=== PATIENT | female | born 1950 | race Caucasian/White ===

== ENCOUNTER 2018-09-14 14:01 | Emergency (ER) | payer BC, MEDICARE ==
--- NOTE | 2018-09-14 15:13 | EDM.PDOC ---
ED HPI GENERAL MEDICAL PROBLEM - General Chief Complaint: Cardiovascular Problem Stated Complaint: HIGH BP Time Seen by Provider: 09/14/18 14:50 Source of Information: Reports: Patient, Old Records, RN History Limitations: Reports: No Limitations - History of Present Illness INITIAL COMMENTS - FREE TEXT/NARRATIVE: 68 yo female with no recent hx of HTN last checked her BP before today 2 weeks ago. Her BP typically runs in the low 130's. Today she checked it at [facility] as she does every 2 weeks and it was much higher. She denies CP, CÁRDENAS, dizziness, diaphoresis, decreased urination or leg swelling. Thinks she has been under more stress lately and has been eating more salt lately. Came in to discuss the elevated BP. Onset: Unknown/Unsure Duration: Day(s): (Not sure when it kaley, sometime over the past 2 weeks?) Location: Reports: Generalized Quality: Reports: Other (no pain) Severity: Moderate Improves with: Reports: None Worsens with: Reports: None Context: Reports: Other (See HPI) Associated Symptoms: Reports: No Other Symptoms Treatments BR[employer]ER [employer]CE: Reports: Other (see below) (none) - Related Data Allergies Allergy/AdvReac Type Severity Reaction Status Date / Time cefuroxime Allergy Cannot Verified 09/14/18 15:08 Remember levofloxacin [From Levaquin] Allergy Hives Verified 09/14/18 15:08 nitrofurantoin Allergy Mouth Sores Verified 09/14/18 15:08 [From Macrobid] Sulfa (Sulfonamide Allergy Hives Verified 09/14/18 15:08 Antibiotics) Home Meds: Home Meds NK [No Known Home Meds] 09/14/18 [History] Past Medical History Respiratory History: Reports: Bronchitis, Recurrent - Past Surgical History HEENT Surgical History: Reports: Tonsillectomy Social & Family History - Tobacco Use Smoking Status *Q: Never Smoker ED ROS GENERAL - Review of Systems Review Of Systems: See Below Constitutional: Reports: No Symptoms HEENT: Reports: No Symptoms Respiratory: Reports: No Symptoms Cardiovascular: Reports: No Symptoms GI/Abdominal: Reports: No Symptoms : Reports: No Symptoms Skin: Reports: No Symptoms Neurological: Reports: No Symptoms ED EXAM, GENERAL - Physical Exam Exam: See Below Exam Limited By: No Limitations General Appearance: Alert, WD/WN, No Apparent Distress Eye Exam: Bilateral Eye: Normal Inspection, PERRL Ears: Normal External Exam, Normal Canal, Hearing Grossly Normal Ear Exam: Bilateral Ear: Auricle Normal, Canal Normal Nose: Normal Inspection, No Blood Throat/Mouth: Normal Inspection, Normal Lips, Normal Oropharynx, Normal Voice, No Airway Compromise Head: Atraumatic, Normocephalic Neck: Normal Inspection Respiratory/Chest: No Respiratory Distress, Lungs Clear, Normal Breath Sounds, No Accessory Muscle Use Cardiovascular: Regular Rate, Rhythm, No Edema GI/Abdominal: Normal Bowel Sounds, Soft, Non-Tender, No Distention Back Exam: Normal Inspection Extremities: Normal Inspection, Normal Range of Motion, Non-Tender, No Pedal Edema Neurological: Alert, Oriented, CN II-XII Intact, Normal Cognition, No Motor/ Sensory Deficits Psychiatric: Normal Affect, Normal Mood Skin Exam: Warm, Dry, Intact, Normal Color, No Rash Course - Vital Signs Last Recorded V/S: Last Vital Signs Temp 36.6 C 09/14/18 14:35 Pulse 79 09/14/18 14:35 Resp 14 09/14/18 14:35 BP 185/86 H 09/14/18 14:35 Pulse Ox 98 09/14/18 14:35 Departure - Departure Time of Disposition: 15:13 Disposition: Home, Self-Care 01 Condition: Good Clinical Impression: HTN, goal below 130/80 Instructions: Preventing Hypertension Referrals: Breonna Schwartz PA [Primary Care Provider] - Additional Instructions: Avoid salt or salty foods. Limit caffeine, alcohol, or decongestants. Eat a diet with plenty of fresh fruits and vegetables. Recheck with your doctor later this week. Return if you develop symptoms like CÁRDENAS, chest pain, SOB, or stroke.
== END 2018-09-14 15:33 | disposition home or self-care (01) ==
LOC: JP.ED 14:01
DX: I10 Essential (primary) hypertension (principal); Z88.2 Allergy status to sulfonamides; Z88.8 Allergy status to other drugs, medicaments and biological substances; Z88.1 Allergy status to other antibiotic agents
CPT/HCPCS: 99282

== ENCOUNTER 2019-04-09 05:45 | Day surgery (SDC) | payer BC, MEDICARE ==
[2019-04-09] MEDS ORDERED: Sodium Chloride 0.9% 10 ML Syringe FLUSH PRN (07:00)
--- NOTE | 2019-04-09 12:10 | OR ---
DATE OF PROCEDURE: 04/09/2019 SURGEON: Namrata Varela MD POSTOPERATIVE CARE: Postoperative care will be provided mainly at the [address] [place] [address] [facility] in conjunction with [facility]. PREOPERATIVE DIAGNOSIS: Cataract, right eye. POSTOPERATIVE DIAGNOSIS: Cataract, right eye. PROCEDURE: Phacoemulsification with intraocular lens placement, right eye. ANESTHESIA: Topical and intracameral. ESTIMATED BLOOD LOSS: Minimal. COMPLICATIONS: None. PATHOLOGY SPECIMENS: None. SURGICAL FINDINGS: None. INDICATION FOR PROCEDURE: The patient is a 68-year-old female with history of a visually significant cataract in the right eye, which interfered with activities of daily living. This consisted of a nuclear sclerosis cataract. Following careful discussion of the risks, benefits and alternatives to cataract extraction with intraocular lens placement including blindness and , the patient elected to proceed, and informed, written consent was obtained prior to the procedure. DESCRIPTION OF THE PROCEDURE: The patient was previously identified, and a vikki placed above the right eye. All sources, including the patient, indicated that the right eye was the correct eye. The patient was subsequently taken to the operating room where standard monitors were applied. The patient was then prepped and draped in the usual sterile fashion for ophthalmic surgery. Attention was first directed at the 12 o'clock position where a paracentesis port was fashioned. Shugar solution followed by Viscoat was instilled into the eye. Attention was then directed to the 8:30 position where a triplanar incision was made in a near-clear manner using a keratome. A continuous capsulorrhexis was then made using a combination of the cystotome and Utrata forceps. Hydrodissection was achieved using a balanced salt solution, and the lens rotated nicely. Phacoemulsification was then done using a modified [id number] technique without complication. Phaco time was 5.58 CDE. The remaining cortex was removed using the irrigation/aspiration handpiece. Provisc was then instilled into the eye. A Technis lens, model [id number], at 21.5 diopters was then placed in the capsular bag using an [place] injector. The remaining viscoelastic was removed using the irrigation/aspiration forceps. All wounds were then checked and found to be watertight. The lid speculum and drapes were removed. Maxitrol ointment was placed in the patient's right eye, and the eye was shielded. The patient tolerated the procedure well. The patient was instructed to follow up tomorrow. All needle and sponge counts were correct at the end of the procedure. Namrata Varela MD /[id number]
== END 2019-04-09 08:02 | disposition home or self-care (01) ==
LOC: JP.SDS 05:45
PROVIDERS: ATTEND Ophthalmology
DX: H25.11 Age-related nuclear cataract, right eye (principal); I10 Essential (primary) hypertension; K21.9 Gastro-esophageal reflux disease without esophagitis; H91.90 Unspecified hearing loss, unspecified ear
CPT/HCPCS: 66984; V2632

== ENCOUNTER 2019-05-07 06:14 | Day surgery (SDC) | payer BC, MEDICARE ==
[2019-05-07] MEDS ORDERED: Sodium Chloride 0.9% 10 ML Syringe FLUSH PRN (07:00)
--- NOTE | 2019-05-07 12:19 | OR ---
DATE OF PROCEDURE: 05/07/2019 SURGEON: Namrata Varela MD POSTOPERATIVE CARE: Postoperative care will be provided mainly at the [address] [place] [address] [facility] in conjunction with [facility]. PREOPERATIVE DIAGNOSIS: Cataract, left eye. POSTOPERATIVE DIAGNOSIS: Cataract, left eye. PROCEDURE: Phacoemulsification with intraocular lens placement, left eye. ANESTHESIA: Topical and intracameral. ESTIMATED BLOOD LOSS: Minimal. COMPLICATIONS: None. PATHOLOGY SPECIMENS: None. SURGICAL FINDINGS: None. INDICATION FOR PROCEDURE: The patient is a 68-year-old female with history of a visually significant cataract in the left eye, which interfered with activities of daily living. This consisted of a nuclear sclerosis cataract. Following careful discussion of the risks, benefits and alternatives to cataract extraction with intraocular lens placement including blindness and , the patient elected to proceed, and informed, written consent was obtained prior to the procedure. DESCRIPTION OF THE PROCEDURE: The patient was previously identified, and a vikki placed above the left eye. All sources, including the patient, indicated that the left eye was the correct eye. The patient was subsequently taken to the operating room where standard monitors were applied. The patient was then prepped and draped in the usual sterile fashion for ophthalmic surgery. Attention was first directed at the 12 o'clock position where a paracentesis port was fashioned. Shugar solution followed by Viscoat was instilled into the eye. Attention was then directed to the 8:30 position where a triplanar incision was made in a near-clear manner using a keratome. A continuous capsulorrhexis was then made using a combination of the cystotome and Utrata forceps. Hydrodissection was achieved using a balanced salt solution, and the lens rotated nicely. Phacoemulsification was then done using a modified totnuy-[id number]-fokxkfv technique without complication. Phaco time was 6.63 CDE. The remaining cortex was removed using the irrigation/aspiration handpiece. Provisc was then instilled into the eye. A Technis lens, model [id number], at 21.0 diopters was then placed in the capsular bag using an [place] injector. The remaining viscoelastic was removed using the irrigation/aspiration forceps. All wounds were then checked and found to be watertight. The lid speculum and drapes were removed. Maxitrol ointment was placed in the patient's left eye, and the eye was shielded. The patient tolerated the procedure well. The patient was instructed to follow up tomorrow. All needle and sponge counts were correct at the end of the procedure. Namrata Varela MD /[id number]
== END 2019-05-07 08:52 | disposition home or self-care (01) ==
LOC: JP.SDS 06:14
PROVIDERS: ATTEND Ophthalmology
DX: H25.12 Age-related nuclear cataract, left eye (principal); I10 Essential (primary) hypertension; K21.9 Gastro-esophageal reflux disease without esophagitis; Z88.2 Allergy status to sulfonamides; Z88.1 Allergy status to other antibiotic agents
CPT/HCPCS: 66984; V2632

== ENCOUNTER 2021-01-21 19:24 | Emergency (ER) | payer BC, MEDICARE ==
[2021-01-21] MEDS ORDERED: fentaNYL 100 MCG/2 ML SDV IVPUSH ONE (21:22)
[2021-01-21] MEDS ORDERED: Propofol 200 MG/20 ML SDV ONE (21:39)
--- NOTE | 2021-01-21 23:03 | EDM.PDOC ---
ED HPI GENERAL MEDICAL PROBLEM - General Chief Complaint: Upper Extremity Injury/Pain Stated Complaint: LT WRIST/ARM INJURY Time Seen by Provider: 01/21/21 20:13 Source of Information: Reports: Patient History Limitations: Reports: No Limitations - History of Present Illness INITIAL COMMENTS - FREE TEXT/NARRATIVE: Keerthi is a 70-year-old female presenting to the ED for an injury to her left wrist and forearm. The patient was watering her lawn with a sprinkler head when she set the item down it sprayed water on her causing her to slip on the grass and fall landing on her left arm. Her hand folded under causing pain and deformity of the wrist. There was volar angulation of the distal segment. There was significant bruising. She denies any numbness or tingling at this t yessica. There is notable Colles' deformity. Treatments FOIL WRAPPER: Reports: Cold Therapy - Related Data Allergies Allergy/AdvReac Type Severity Reaction Status Date / Time cefuroxime Allergy Cannot Verified 01/21/21 20:31 Remember latex Allergy Itching Verified 01/21/21 20:31 levofloxacin [From Levaquin] Allergy Hives Verified 01/21/21 20:31 nitrofurantoin Allergy Mouth Sores Verified 01/21/21 20:31 [From Macrobid] Sulfa (Sulfonamide Allergy Hives Verified 01/21/21 20:31 Antibiotics) Home Meds: Home Meds Fluconazole [Diflucan] 150 mg PO DAILY PRN 04/06/19 [History] Fluticasone Propionate [Flonase] 2 spray NASBOTH DAILY PRN 04/06/19 [History] #103/Iron Fumarate/Fa [ ] 1 tab PO DAILY 04/06/19 [History] diphenhydrAMINE HCL [Benadryl Allergy] 25 mg PO ASDIRECTED PRN 04/06/19 [History] Ascorbic Acid [Vitamin C] 1,000 mg PO BID 04/09/19 [History] Ergocalciferol (Vitamin D2) [Vitamin D2] 500 units PO DAILY 04/09/19 [History] Triamterene/Hydrochlorothiazid [Triamterene-HCTZ 37.5-25 MG] 1 tab PO DAILY 01/21/21 [History] Past Medical History HEENT History: Reports: Allergic Rhinitis, Cataract, Hard of Hearing, Sinusitis Cardiovascular History: Reports: Hypertension Respiratory History: Reports: Bronchitis, Recurrent Gastrointestinal History: Reports: GERD, Hepatitis Genitourinary History: Reports: Renal Calculus, UTI, Recurrent ELECTRONICS SUPERVISOR History: Reports: , Other (See Below) Other ELECTRONICS SUPERVISOR History: ovarian cyst Musculoskeletal History: Reports: Fracture, Other (See Below) Other Musculoskeletal History: right lower leg fracture - Infectious Disease History Infectious Disease History: Reports: Chicken Pox, Measles, Mumps Other Infectious Disease History: states hepatitis as child - Past Surgical History HEENT Surgical History: Reports: Cataract Surgery, Tonsillectomy Cardiovascular Surgical History: Reports: None Respiratory Surgical History: Reports: None GI Surgical History: Reports: EGD Female Surgical History: Reports: None, Tubal Ligation Musculoskeletal Surgical History: Reports: None Social & Family History - Tobacco Use Tobacco Use Status *Q: Never Tobacco User - Caffeine Use Caffeine Use: Reports: Coffee Review of Systems - Review of Systems Review Of Systems: See Below Constitutional: Reports: No Symptoms Respiratory: Reports: No Symptoms Cardiovascular: Reports: No Symptoms GI/Abdominal: Reports: No Symptoms Musculoskeletal: Reports: Other (Left wrist pain, swelling, and deformity) Neurological: Reports: No Symptoms ED EXAM, GENERAL - Physical Exam Exam: See Below Exam Limited By: No Limitations General Appearance: Alert, Mild Distress Respiratory/Chest: No Respiratory Distress, Lungs Clear, Normal Breath Sounds Cardiovascular: Normal Peripheral Pulses, Regular Rate, Rhythm Peripheral Pulses: 2+: Radial (L) Extremities: Normal Capillary Refill, Limited Range of Motion (Volar deformity with angulation of the distal segment of the forearm and wrist. There is significant ecchymosis, swelling, and tenderness. Movement in the hand is intact.) Neurological: Alert, Oriented, Normal Cognition, No Motor/Sensory Deficits Skin Exam: Ecchymosis (Ecchymosis over the distal left forearm and wrist) ED TRAUMA EXTREMITY PROCEDURES - Joint Reduction Left Wrist Sedation: Conscious Sedation Pre-Procedure NV Status: Normal Post-Procedure NV Status: Normal Technique: Traction/Counter Traction Number of Attempts: 1 Post-Reduction Imaging: Acceptably Reduced (Reduction was performed under fluoroscopic examination with acceptable alignment of the bones.) Joint Reduction Complications: Yes Joint Reduction Complication Description: Unfortunately while placing the patient in the sugar tong splint, she started to have flexor muscle contractions which likely pulled the bones out of the previous alignment. This is visualized in the post reduction x-rays once the sugar tong splint was applied. Course - Vital Signs Last Recorded V/S: Last Vital Signs Temp 36.5 C 01/21/21 20:36 Pulse 111 H 01/21/21 20:36 Resp 16 01/21/21 20:36 BP 168/89 H 01/21/21 20:36 Pulse Ox 99 01/21/21 20:36 - Orders/Labs/Meds Orders: Active Orders 24 hr Category Date Time Status Consult to Orthopedic Clinic [CONS] Routine Cons 01/21/21 23:00 Active Fluoro Up To 1Hr [CR] Stat Exams 01/21/21 21:37 Taken Wrist 2V Lt [CR] Stat Exams 01/21/21 22:09 Taken Wrist Comp Min 3V Lt [CR] Stat Exams 01/21/21 20:12 Taken Meds: Medications Discontinued Medications Generic Name Dose Route Start Last Admin Trade Name Joseq PRN Reason Stop Dose Admin Fentanyl 100 mcg 01/21/21 21:22 01/21/21 22:15 Fentanyl 100 Mcg/2 Ml Sdv IVPUSH 01/21/21 21:23 100 mcg ONETIME ONE Administration Propofol Confirm 01/21/21 21:39 Propofol 200 Mg/20 Ml Sdv Administered 01/21/21 21:40 Dose 200 mg .ROUTE .STK-MED ONE - Radiology Interpretation Free Text/Narrative:: I reviewed the three-view x-ray of the left wrist showing volar angulation of a Colles' fracture with displacement of the distal radius and ulna as well as lateral displacement of the proximal sections. Risks and benefits were discussed about attempting a closed reduction under conscious sedation. The patient was consented to proceed with the reduction. I did express that there was a chance that it would require surgery but there was also a better chance that we could reduce this and avoid that. Patient understands this and elects to proceed. Dillon Alvarado anesthesia assisted with the conscious sedation portion of the procedure. - Re-Assessments/Exams Free Text/Narrative Re-Assessment/Exam: 01/21/21 I reviewed the three-view x-ray of the left wrist showing volar angulation of a Colles' fracture with displacement of the distal radius and ulna as well as lateral displacement of the proximal sections. Risks and benefits were discussed about attempting a closed reduction under conscious sedation. The patient was consented to proceed with the reduction. I did express that there was a chance that it would require surgery but there was also a better chance that we could reduce this and avoid that. Patient understands this and elects to proceed. Dillon Alvarado anesthesia assisted with the conscious sedation portion of the procedure. Fluoroscopy was used to show alignment of the reduction prior to splinting. After manipulation with traction and countertraction, the alignment was markedly improved, however, during application of the sugar tong splint and with the patient waking up from anesthesia, she started having twinges in her flexor muscles which likely pulled the distal segments back out of alignment somewhat. This was discovered in the post reduction films once the splint was applied. She may have some improve ment with relaxation of the muscles and with time. I had like the patient to follow-up with Dr. Najera next week for reevaluation and possible casting or surgery if it is necessary. Indications for the patient to return to the ED were discussed. She requested Tylenol 3 for pain control which has been sent off to the [facility] meds machine. All questions were answered prior to discharge Departure - Departure Time of Disposition: 23:01 Disposition: Home, Self-Care 01 Clinical Impression: Fracture, Colles, left, closed Qualifiers: Encounter type: initial encounter Qualified Code(s): S52.532A - Colles' fracture of left radius, initial encounter for closed fracture - Discharge Information Instructions: Wrist Fracture Treated With Immobilization, [id number] Referrals: Breonna Schwartz PA [Primary Care Provider] - Forms: ED Department Discharge Care Plan Goals: I have sent a prescription out to the [facility] machine for Tylenol 3 per your request. Please use as needed. I have placed a consult with Dr. Najera in orthopedics for early next week for reevaluation and probable casting. They will likely contact you on Saturday to set up that appointment. Return to the ED should you develop any significant numbness or tingling, blueness of the fingers, or increasing pain. No use of the left arm. Keep the left arm elevated. You may apply ice to the area of pain through the splint. Wear the sling when up and ambulating. Sepsis Event Note (ED) - Evaluation Sepsis Screening Result: No Definite Risk - Focused Exam Vital Signs: Vital Signs Temp Pulse Resp BP Pulse Ox 01/21/21 20:36 36.5 C 111 H 16 168/89 H 99 01/21/21 20:26 36.5 C 111 H 16 168/89 H 99 - Problem List & Annotations (1) Fracture, Colles, left, closed SNOMED Code(s): 783793347 Code(s): S52.532A - COLLES' FRACTURE OF LEFT RADIUS, INIT FOR CLOS FX Status: Acute Priority: Medium Current Visit: Yes Qualifiers: Encounter type: initial encounter Qualified Code(s): S52.532A - Colles' fracture of left radius, initial encounter for closed fracture - Problem List Review Problem List Initiated/Reviewed/Updated: Yes - My Orders Last 24 Hours: My Active Orders 01/21/21 20:12 Wrist Comp Min 3V Lt [CR] Stat 01/21/21 21:37 Fluoro Up To 1Hr [CR] Stat 01/21/21 22:09 Wrist 2V Lt [CR] Stat 01/21/21 23:00 Consult to Orthopedic Clinic [CONS] Routine - Assessment/Plan Last 24 Hours: My Active Orders 01/21/21 20:12 Wrist Comp Min 3V Lt [CR] Stat 01/21/21 21:37 Fluoro Up To 1Hr [CR] Stat 01/21/21 22:09 Wrist 2V Lt [CR] Stat 01/21/21 23:00 Consult to Orthopedic Clinic [CONS] Routine
--- NOTE | 2021-01-23 10:18 | CR ---
Wrist Comp Min 3V Lt CLINICAL HISTORY: Fall, deformity FINDINGS: Patient is a comminuted displaced fracture of the distal radius with articular surface involvement. There is a fracture of the distal ulna at the diaphyseal metaphyseal junction. There is also a fracture of the ulnar styloid. Impression: Displaced comminuted fractures of the distal radius and ulna
--- NOTE | 2021-01-23 10:19 | CR ---
Fluoro Up To 1Hr CLINICAL HISTORY: Fracture reduction FINDINGS: Fluoroscopic spot images show reduction in the displaced distal radial ulnar fractures Fluoroscopy time was 3 seconds IMPRESSION: OR images as above
--- NOTE | 2021-01-23 10:37 | CR ---
Wrist 2V Lt CLINICAL HISTORY: Postreduction FINDINGS: Patient has distal radial ulnar fractures. Displacement has been reduced since prior study. There is a splint in place IMPRESSION: Post reduction distal radial and ulnar fractures in splint
== END 2021-01-21 23:14 | disposition home or self-care (01) ==
LOC: JP.ED 19:24
DX: S52.532A Colles' fracture of left radius, initial encounter for closed fracture (principal); I10 Essential (primary) hypertension; Z88.1 Allergy status to other antibiotic agents; Z91.040 Latex allergy status; Z88.2 Allergy status to sulfonamides; W01.0XXA Fall on same level from slipping, tripping and stumbling without subsequent striking against object, initial encounter; W25.XXXA Contact with sharp glass, initial encounter
CPT/HCPCS: 25605; 73100; 73110; 76000; 99283; J2704; J3010; 99284

== ENCOUNTER 2021-01-24 15:00 | Day surgery (SDC) | payer BC, MEDICARE ==
[~2021-01-24 15:00] MED LIST: Bupivacaine 0.5% 30 ML SDV ONE
[2021-01-24] MEDS ORDERED: Nozin Nasal Sanitizer NASBOTH ONE (15:30)
[2021-01-24] MEDS ORDERED: Lactated Ringers 1,000 ML IV SCH (15:30)
[2021-01-24] MEDS ORDERED: fentaNYL 250 MCG/5 ML SDV ONE (15:42)
[2021-01-24] MEDS ORDERED: Propofol 200 MG/20 ML SDV ONE (15:43)
[2021-01-24] MEDS ORDERED: Succinylcholine 200 MG/10 ML MDV ONE (15:43)
[2021-01-24] MEDS ORDERED: Dexamethasone 4 MG/ML SDV ONE (15:43)
[2021-01-24] MEDS ORDERED: Rocuronium 50 MG/5 ML Vial ONE (15:43)
[2021-01-24] MEDS ORDERED: Ondansetron 4 MG/2 ML SDV ONE (15:43)
[2021-01-24] MEDS ORDERED: Neostigmine Methylsulfate 1 MG/ML 5 ML Syringe ONE (15:43)
[2021-01-24] MEDS ORDERED: Glycopyrrolate 0.2 MG/ML 5 ML MDV ONE (15:43)
[2021-01-24] MEDS ORDERED: Clindamycin Phosphate 900 MG in Sodium Chloride 0.9% 100 ML IV ONE (16:45)
--- NOTE | 2021-01-30 16:36 | PCM.EKG ---
#1 Interpretation EKG Date: 01/30/21 Time: 15:10 Rhythm: NSR Rate (Beats/Min): 89 [place]: Normal P-Wave: Present QRS: Normal ST-T: Other (Nonspecific ST segment and T wave abnormalities) QT: Normal Comparison: NA - No Prior EKG
--- NOTE | 2021-02-07 14:22 | OR ---
DATE OF PROCEDURE: 01/24/2021 SURGEON: Jefferson Najera MD PREOPERATIVE DIAGNOSIS: Left distal radius fracture, extraarticular, comminuted. POSTOPERATIVE DIAGNOSIS: Left distal radius fracture, extraarticular, comminuted. PROCEDURE: Open reduction internal fixation, left distal radius. BINDER SELECTOR: MOHSEN Slade ANESTHESIA: General. INDICATIONS: Keerthi is a 70-year-old female who sustained a fall on 01/21/2021 resulting in fracture of left distal radius. She underwent reduction in the emergency room with splinting. Followup x-rays reveal some persistent displacement. This is an extraarticular volar Wang's variant with some volar displacement. PROCEDURE: DICTATION ENDS HERE Jefferson Najera MD /[id number] MTDD
== END 2021-01-24 21:00 | disposition home or self-care (01) ==
LOC: JP.SDS 15:00
PROVIDERS: ATTEND Specialist
DX: S52.552A Other extraarticular fracture of lower end of left radius, initial encounter for closed fracture (principal); S59.002A Unspecified physeal fracture of lower end of ulna, left arm, initial encounter for closed fracture; S52.612A Displaced fracture of left ulna styloid process, initial encounter for closed fracture; I10 Essential (primary) hypertension; E11.9 Type 2 diabetes mellitus without complications; E66.9 Obesity, unspecified; K21.9 Gastro-esophageal reflux disease without esophagitis; Z87.891 Personal history of nicotine dependence; W19.XXXA Unspecified fall, initial encounter; Z88.8 Allergy status to other drugs, medicaments and biological substances; Z88.2 Allergy status to sulfonamides; Z91.040 Latex allergy status
CPT/HCPCS: 25607; 36415; 76000; 80053; 85027; 93005; A9270; C1713; J0330; J1100; J2405; J2704; J2710; J3010; J3490; J7120

== ENCOUNTER 2022-06-23 13:29 | Emergency (ER) | payer MEDICARE, BC | END 2022-06-23 15:24 | disposition home or self-care (01) | LOC: JP.ED 13:29 | DX: R42 Dizziness and giddiness (principal); I10 Essential (primary) hypertension; Z88.1 Allergy status to other antibiotic agents; Z91.040 Latex allergy status; Z88.2 Allergy status to sulfonamides; Z79.899 Other long term (current) drug therapy | CPT/HCPCS: 36415; 80048; 82550; 85025; 99284 ==